=== PATIENT | male | born 1945 | race Caucasian/White ===

== ENCOUNTER 2020-11-01 11:04 | Inpatient (IN) | payer OTHER, SELFPAY ==
[~2020-11-01] VITALS: Ht 170.2 cm; Wt 83.5 kg
[2020-11-01 11:06] VITALS: BP 153/81
--- NOTE | 2020-11-01 11:08 | NUR ---
BIBA TAKEN TO BED 4
--- NOTE | 2020-11-01 11:17 | NUR ---
DAUGHTER INFORMATION- CRISTHIAN ROUSSEAU [phone]
[2020-11-01] MEDS ORDERED: DEXAMETHASONE 4 MG/ML VIAL IVP ONE (11:25)
--- NOTE | 2020-11-01 11:46 | NUR ---
X-Ray at bedside.
[2020-11-01 12:15] LABS: BASOPHILS % (AUTO) 0.4 % (0.0-2.0); EOSINOPHILS % (AUTO) 0.1 % (0.0-4.0); HEMATOCRIT 38.8 % (36-52); HEMOGLOBIN 12.4 g/dL (12.0-18.0); LYMPHOCYTES # (AUTO) 0.3 K/uL (2.0-11.5); LYMPHOCYTES % (AUTO) 5.4 % (20.5-51.1); MEAN CORPUSCULAR HEMOGLOBIN 29 pg (27-31); MEAN CORPUSCULAR HGB CONC 32 g/dL (33-37); MEAN CORPUSCULAR VOLUME 91.5 fL (80-94); MONOCYTES # (AUTO) 0.4 K/uL (0.8-1.0); MONOCYTES % (AUTO) 7.1 % (1.7-9.3); NEUTROPHILS # (AUTO) 4.9 K/uL (1.8-7.7); PLATELET COUNT (AUTO) 169 K/uL (140-450); RED BLOOD CELL COUNT(AUTO) 4.24 MIL/uL (4.20-6.10); RED CELL DISTRIBUTION WIDTH 16.1 % (11.6-13.7); WHITE BLOOD COUNT (AUTO) 5.6 K/uL (4.8-10.8)
[2020-11-01 12:26] LABS: C-REACTIVE PROTEIN QUANT 11.9 mg/dL (0.0-0.9)
[2020-11-01 12:30] LABS: ALBUMIN 3.4 g/dL (3.4-5.0); ANION GAP 20.7 (8-16); ASPARTATE AMINOTRANSFERASE 129 U/L (15-37); CHLORIDE 94 mmol/L (98-107); GLUCOSE 152 mg/dL (74-106); POTASSIUM 4.7 mmol/L (3.5-5.1); SODIUM SERUM 138 mmol/L (136-145); TOTAL BILIRUBIN 0.8 mg/dL (0.0-1.0); UREA NITROGEN, BLOOD 32 mg/dL (7-18)
[2020-11-01] MEDS ORDERED: FOLI1TAB89 PO (12:32)
[2020-11-01] MEDS ORDERED: ACET-8386 PO (12:32)
[2020-11-01] MEDS ORDERED: CARV6.25 PO (12:32)
[2020-11-01] MEDS ORDERED: ZAR2.5 PO (12:32)
[2020-11-01] MEDS ORDERED: INSU100S5 IM (12:32)
[2020-11-01] MEDS ORDERED: PATI8.4P PO (12:32)
[2020-11-01] MEDS ORDERED: GABA100C PO (12:32)
[2020-11-01] MEDS ORDERED: CALC667C12 PO (12:32)
[2020-11-01] MEDS ORDERED: ATOR40TA PO (12:32)
[2020-11-01] MEDS ORDERED: DOCU-299 PO (12:32)
[2020-11-01] MEDS ORDERED: ASPI-1822 PO (12:32)
[2020-11-01] MEDS ORDERED: VITA-16 PO (12:32)
[2020-11-01] MEDS ORDERED: CLOP75TA55 PO (12:32)
[2020-11-01] MEDS ORDERED: FERR325E14 PO (12:32)
[2020-11-01 12:34] LABS: PROTHROMBIN TIME 12.1 secs (10.8-13.4)
[2020-11-01 12:37] LABS: CREATININE 5.4 mg/dL (0.6-1.3)
--- NOTE | 2020-11-01 12:39 | NUR ---
Stable VSS Mild SOB Doing well on NR at 100%
--- NOTE | 2020-11-01 12:59 | NUR ---
Covid swab invalid-- critical value received from lab. Dr Amanda made aware
[2020-11-01] MEDS ORDERED: AZITHROMYCIN 500 MG in DEXTROSE 5% 250 ML IV ONE (13:30)
[2020-11-01] MEDS ORDERED: ASPIRIN 325 MG TAB PO ONE (13:30)
[2020-11-01] MEDS ORDERED: cefTRIAXone 1,000 MG VIAL ONE (13:56)
[2020-11-01] MEDS ORDERED: AZITHROMYCIN 500 MG INJ VIAL IV ONE (13:56)
[2020-11-01 16:02] LABS: APPEARANCE,URINE CLEAR (CLEAR); BILIRUBIN,URINE NEGATIVE (NEGATIVE); BLOOD, URINE NEGATIVE (NEGATIVE); COLOR,URINE YELLOW (YELLOW); LEUKOCYTE ESTERASE ,URINE NEGATIVE (NEGATIVE); NITRITE, URINE NEGATIVE (NEGATIVE); UGLUCOSE TRACE (NEGATIVE)
--- NOTE | 2020-11-01 16:09 | NUR ---
Stable. VSS. Afebrile. 02 Sat has improved on 100% NR. Now at 98%. Patient to be admitted.
--- NOTE | 2020-11-01 16:34 | NUR ---
Oksana an-- call for updates [phone]
[2020-11-01] MEDS: NACL 0.9% 1,000 ML IV SCH (23:10)
[2020-11-01] MEDS ORDERED: MAG SULF 2000 MG/WATER PREMIX 50 ML IV PRN (23:10)
[2020-11-01] MEDS ORDERED: ALBUTEROL HFA MDI 90 MCG/ACTUATION 8 GM INH PRN (23:10)
[2020-11-01] MEDS ORDERED: ONDANSETRON 4 MG/2 ML VIAL IM/IVP PRN (23:10)
[2020-11-01] MEDS ORDERED: ACETAMINOPHEN 325 MG TAB PO PRN (23:10)
[2020-11-01] MEDS ORDERED: HYDROcodone/APAP 5/325 MG 1 TAB TAB PO PRN (23:10)
[2020-11-01] MEDS ORDERED: MORPHINE SULFATE 2 MG/ML SYR IVP PRN (23:10)
[2020-11-01] MEDS ORDERED: ZOLPIDEM 5 MG TAB PO PRN (23:10)
[2020-11-01] MEDS ORDERED: DOCUSATE SODIUM 100 MG GELCAP PO PRN (23:10)
[2020-11-01] MEDS ORDERED: POTASSIUM CHLORIDE 10 MEQ TABER PO PRN (23:10)
[2020-11-01] MEDS ORDERED: LORazepam 2 MG/ML VIAL IM/IVP PRN (23:10)
[2020-11-01] MEDS ORDERED: hePARIN / DEXT 5% PREMIX 250 ML IV SCH (23:25)
[2020-11-02] MEDS ORDERED: DEXTROSE 50% 50 ML SYR IVP PRN (01:15)
--- NOTE | 2020-11-02 01:15 | NUR ---
LAB AT BEDSIDE
[2020-11-02 01:24] LABS: MAGNESIUM 2.4 mg/dL (1.8-2.4); PHOSPHORUS 3.8 mg/dL (2.5-4.9); THYROID STIMULATING HORMONE 1.29 uIU/mL (0.34-3.74)
--- NOTE | 2020-11-02 03:00 | NUR ---
AWAKE, DENIES PAIN OR DISCOMFORT. JUICE AND URINAL GIVEN
--- NOTE | 2020-11-02 06:00 | NUR ---
RESTING COMFORTABLY WITH EYES CLOSED. RESPIRATIONS REGULAR AND UNLABORED.
[2020-11-02] MEDS ORDERED: hePARIN / DEXT 5% PREMIX 250 ML IV SCH (07:10)
[2020-11-02] MEDS ORDERED: HEPARIN PER PHARMACY MC PRN (07:17)
[2020-11-02] MEDS: BLOOD GLUCOSE MONITORING 1 DEV DEV FS SCH ×4 (07:39→21:38)
[2020-11-02] MEDS: INSULIN LISPRO SLIDING SCALE 100 UNITS/ML VIAL SUBQ PRN ×3 (07:41→21:37)
[2020-11-02] MEDS ORDERED: metOLazone 2.5 MG TAB PO SCH (09:00)
[2020-11-02] MEDS ORDERED: FOLIC ACID 1 MG TAB PO SCH (09:00)
[2020-11-02] MEDS ORDERED: ASPIRIN 81 MG TAB.CHEW PO SCH (09:00)
[2020-11-02] MEDS ORDERED: LOVENOX 1MG/KG Q12H SUBQ SCH (09:00)
[2020-11-02] MEDS ORDERED: CLOPIDOGREL 75 MG TAB PO SCH (09:00)
[2020-11-02] MEDS ORDERED: NON-FORMULARY ITEM (Cholecalciferol (Vitamin D3) (Vitamin D3) 5,000 U) PO SCH (09:00)
[2020-11-02] MEDS ORDERED: PATIROMER CALCIUM SORBITEX 8.4 GM PO SCH (09:00)
[2020-11-02] MEDS ORDERED: VITAMIN D 400 IU TAB PO SCH (09:00)
[2020-11-02] MEDS ORDERED: ASCORBIC ACID 500 MG TAB PO SCH (09:00)
[2020-11-02] MEDS ORDERED: AZITHROMYCIN 250 MG TAB PO SCH (09:00)
[2020-11-02] MEDS ORDERED: ATORVASTATIN 20 MG TAB PO SCH (09:00)
[2020-11-02] MEDS: DOCUSATE SODIUM 100 MG GELCAP PO SCH ×3 (09:15→17:00)
[2020-11-02] MEDS: carvediloL 6.25 MG TAB PO SCH ×2 (09:15→21:00)
[2020-11-02] MEDS: FERROUS SULFATE 325 MG TABEC PO SCH ×2 (09:15→21:00)
[2020-11-02] MEDS: CALCIUM ACETATE 667 MG TAB PO SCH ×3 (09:15→17:00)
[2020-11-02] MEDS: GABAPENTIN 100 MG CAP PO SCH ×2 (09:15→21:00)
[2020-11-02 09:59] LABS: BASOPHILS % (AUTO) 0.2 % (0.0-2.0); LYMPHOCYTES # (AUTO) 0.9 K/uL (2.0-11.5); LYMPHOCYTES % (AUTO) 15.2 % (20.5-51.1); MEAN CORPUSCULAR HEMOGLOBIN 29 pg (27-31); MEAN CORPUSCULAR HGB CONC 33 g/dL (33-37); MEAN CORPUSCULAR VOLUME 90.1 fL (80-94); MONOCYTES # (AUTO) 0.4 K/uL (0.8-1.0); MONOCYTES % (AUTO) 7.2 % (1.7-9.3); NEUTROPHILS # (AUTO) 4.8 K/uL (1.8-7.7); NEUTROPHILS % (AUTO) 77.4 % (42.2-75.2); PLATELET COUNT (AUTO) 160 K/uL (140-450); RED BLOOD CELL COUNT(AUTO) 4.44 MIL/uL (4.20-6.10); RED CELL DISTRIBUTION WIDTH 16.3 % (11.6-13.7); WHITE BLOOD COUNT (AUTO) 6.2 K/uL (4.8-10.8)
--- NOTE | 2020-11-02 10:19 | NUR ---
PATIENT HAS BEEN SCREENED AND CATEGORIZED MODERATE NUTRITION RISK. PATIENT WILL BE SEEN WITHIN 3-5 DAYS OF ADMISSION. 11/04/20 11/06/[address]
[2020-11-02 10:40] LABS: ALBUMIN 3.2 g/dL (3.4-5.0); ANION GAP 20.1 (8-16); ASPARTATE AMINOTRANSFERASE 204 U/L (15-37); CARBON DIOXIDE 25.5 mmol/L (21-32); CHLORIDE 95 mmol/L (98-107); CHOL/HDL RATIO 2.8 (1-4.5); GLUCOSE 257 mg/dL (74-106); HDL CHOLESTEROL 36 mg/dL (40-60); LDL (CALC) 38 mg/dL (60-100); PHOSPHORUS 6.5 mg/dL (2.5-4.9); POTASSIUM 4.6 mmol/L (3.5-5.1); SODIUM SERUM 136 mmol/L (136-145); TOTAL BILIRUBIN 0.5 mg/dL (0.0-1.0); TRIGLYCERIDES 125 mg/dL (30-150); UREA NITROGEN, BLOOD 54 mg/dL (7-18)
[2020-11-02 10:43] LABS: CREATININE 7.1 mg/dL (0.6-1.3)
--- NOTE | 2020-11-02 10:47 | NUR ---
SOCIAL WORK NOTE: Patient's Orientation Unable To Assess Information Provided By CRISTHIAN ROUSSEAU - DAUGHTER Comments SW WAS UNABLE TO MEET PATIENT AT BEDSIDE TO COMPLETE ASSESSMENT. SW COMPLETED ASSESSMENT WITH PATIENT'S TRAVIS. [employer] Resource Teacher, Realtionship and Phone Number CRISTHIAN ROUSSEAU DAUGHTER [phone] Healthcare Power of Warehouse Representative No Does Patient Have a POLST No Identifying Problems No Social Work Triggers Is A Social Work Consult Needed No Mandate Report Filed No Explanation Of Identifying Problems PATIENT IS A 75-YEAR-OLD MALE ADMITTED FOR ACUTE HYPOXIA. PATIENT HAS PMHX OF HYPERTENSION, DIABETES, AND ESRD ON HD. Admitted From Home Pre-Admission Level Of Functioning Status Total Care Prior Resources/Services Used In Last 12 Months No Prior Resources Used Prior DME Home Oxygen Wheelchair Dialysis Hemodialysis Name And Phone Number of Dialysis Facility [facility] Outpatient Time [address] Lives With Family Patient Had Caregiver No Home Support CG/Fam Able To Meet Need Financial Issues No Known Financial Issue Referral To The Financial Counselor Needed No Factors/Needs No D/C Needs Identified Pt/Rep Participated In Discharge Plan Yes Patient/Family Agress With Discharge Plan Yes Discharge Plan Comments TENTATIVE DISCHARGE PLAN IS FOR PATIENT TO RETURN HOME. DC Plan Status Initiated
[2020-11-02 11:08] LABS: LACTATE DEHYDROGENASE 529 U/L (85-227)
--- NOTE | 2020-11-02 12:12 | NUR ---
Unable to get IV access in patient. States he does not want any more attempts at IV. Dr Lopez made aware
[2020-11-02] MEDS ORDERED: AZITHROMYCIN 250 MG in DEXTROSE 5% 250 ML IV SCH (13:00)
--- NOTE | 2020-11-02 13:19 | NUR ---
SPOKE WITH ELANA, UPDATED ON PLAN OF CARE. ALL QUESTIONS ANSWERED.
--- NOTE | 2020-11-02 16:00 | NUR ---
RECIVED REPORT FROM [facility], CONTINUATION OF CARE. PATION ON 15L NON-REBREATHER MASK 94%, PATIENT ON CARIDAC MONITOR. VSS. PATIENT GIVEN URINAL AT BEDSIDE, BEDSIDE COMODE AT BEDISDE. PATIENT ACCUCHECK 213. UNABLE TO GET IV ACCESS ON PATIENT, PATIENT REFUSING PICC OR CENTRAL LINE ACCESS. DIALYSIS SHUNT NOTED ON R FA AND THRILL FELT, BRUIT HEARD. NO BP PN R ARM. PATIENT BED LOCKED AND IN LOWEST POSITION CALL LIGHT IN PLACE. PATIENT STATES RECIVED DYALISIS YESTERDAY BUT USUALLY GETS IT T,TH,SAT. MEDHX: DM, ESRD. NKA
--- NOTE | 2020-11-02 16:30 | NUR ---
PATIENT REFUSED PICC LINE PLACEMENT. DR. HEIN MADE AWARE.
[2020-11-02] MEDS: NACL 0.9% 1,000 ML IV SCH (16:56)
[2020-11-02] MEDS ORDERED: INSULIN REGULAR, HUMAN 100 UNIT/ML VIAL IM SCH (17:00)
--- NOTE | 2020-11-02 18:22 | NUR ---
Patient appears to be resting comfortably in bed. Vital Signs within normal limits. Respirations even and unlabored.
--- NOTE | 2020-11-02 20:19 | NUR ---
PATIENT FOOD TRAY GIVEN AT BEDSIDE.
--- NOTE | 2020-11-02 20:30 | NUR ---
Patient will be admitted to care of . Admited to TELE. Will go to room 102B. Belongings list completed. Report to [facility].
--- NOTE | 2020-11-02 21:30 | NUR ---
Admitted from ER. Patient alert and oriented x4. Received patient on 15L NRB. O2 sat 86%. Patient refused IV access, MRSA swab and all medications except insulin. Explained risks and benefits, patient still refused. Patient also refused body assessment.
[2020-11-02 22:26] VITALS: BP 174/93
--- NOTE | 2020-11-02 22:30 | NUR ---
Patient refusing care. Spoke with daughter Oksana, made aware. Daughter also spoke with patient, but patient still refusing care.
--- NOTE | 2020-11-03 00:41 | NUR ---
PER LACE ROLLER OPERATOR PATIENT WENT TO SINUS KEVIN HIGH 30'S, WENT TO CHECK PATIENT. PATIENT IS UNRESPONSIVE. MASK IS OFF. CHECKED PULSE. NO PULSE NOTED. ACTIVATED CODE BLUE. START CHEST COMPRESSION.
--- NOTE | 2020-11-03 00:57 | NUR ---
PATIENT SURVIVED AND INTUBATED, IO WAS PUT IN FOR IV ACCESS.
[2020-11-03] MEDS ORDERED: PROPOFOL 1000 MG/100 ML PREMIX 100 ML IV ONE (01:05)
--- NOTE | 2020-11-03 01:10 | NUR ---
PATIENT BECOME ASYSTOLE. CHECK FOR PULSE NO PULSE NOTED. ACTIVATED CODE BLUE. START CHEST COMPRESSION.
--- NOTE | 2020-11-03 01:12 | NUR ---
GOT PULSE. PATIENT IS TACHY
--- NOTE | 2020-11-03 01:15 | NUR ---
ENDORSED PATIENT TO NOLVIA FOR CONTINUITY OF CARE
--- NOTE | 2020-11-03 01:20 | NUR ---
NOTIFY PATIENT DAUGHTER REGARDING PATIENT SITUATION.
--- NOTE | 2020-11-03 01:25 | NUR ---
NOTIFIED MD REGARDING PATIENT SITUATION
--- NOTE | 2020-11-03 01:26 | NUR ---
PATIENT BECOME ASYSTOLE AGAIN. CHECKED PULSE, NO PULSE NOTED. START CHEST COMPRESSION. ACTIVATED CODE BLUE.
--- NOTE | 2020-11-03 01:33 | NUR ---
GOT PULSE. PATIENT RHYTHM IS SINUS TACHY. PATIENT SURVIVED FROM RESUSCITATION
--- NOTE | 2020-11-03 01:46 | NUR ---
FOR THE 4TH TIME PATIENT BECOME CARDIAC RHYTHM ASYSTOLE. CHECK PATIENT PULSE, NO PULSE NOTED. START CHEST COMPRESSION. ACTIVATED SPEEDY CASTELLANO.
--- NOTE | 2020-11-03 01:54 | NUR ---
DOCTOR WILCOX SPOKE WITH THE PATIENTS DAUGHTER TO GIVE MORE INFORMATION REGARDING PATIENT STATUS.
--- NOTE | 2020-11-03 01:55 | NUR ---
PATIENT BP 82/54, 77HR, 82% SPO2 ETT TO VENT. LEVOPHED STARTED.
--- NOTE | 2020-11-03 02:02 | NUR ---
PT PLACED ON PC +8, f 20 100% PT RECEIVING ADEQUATE VOLUMES. SIZE 8.0 ETT SECURED 24CM. LAST SPO2 OBTAINABLE WAS 84%. POST ABG IS UN-OBTAINABLE AT THIS TIME DUE TO LOW BP. ABG UN-SUCESSFUL X2 WILL ATTEMPT AGAIN AT A LATER TIME WHEN BP INCREASES
--- NOTE | 2020-11-03 02:06 | NUR ---
PATIENT BECAME SUPER KEVIN BELOW 30'S, CHECK FOR PULSE. NO PULSE NOTED. START CHEST COMPRESSION. ACTIVATED CODE BLUE
--- NOTE | 2020-11-03 02:15 | NUR ---
PER DOCTOR JERI PATIENT IS NOW DNR PER DAUGHTER CRISTHIAN KNIGHT
--- NOTE | 2020-11-03 02:24 | NUR ---
PATIENT WAS PRONOUNCED AT 223 BY DOCTOR WILCOX
--- NOTE | 2020-11-03 02:45 | NUR ---
RELEASED PATIENTS BELONGINGS TO CRISTHIAN PATIENTS DAUGHTER.
--- NOTE | 2020-11-03 02:49 | NUR ---
CALLED [facility]. RELEASE NUMBER [phone]
--- NOTE | 2020-11-03 03:00 | NUR ---
FAMILY DOESN'T HAVE A PLACE FOR THE PATIENT YET. WILL CALL AGAIN LATER
--- NOTE | 2020-11-03 04:10 | NUR ---
SPOKE WITH TAYO JORDAN CORONERS PERSONNEL. PER TAYO PATIENT BODY CAN BE RELEASE.
--- NOTE | 2020-11-03 04:30 | NUR ---
REMOVED ALL IV AND TUBING LINES.
--- NOTE | 2020-11-03 05:00 | NUR ---
PATIENTS DAUGHTER CRISTHIAN CONTACT INFORMATION [phone]
[2020-11-03 08:07] LABS: T4 (THYROXINE) 7.4 ug/dL (4.5-12.0)
[2020-11-03 19:41] LABS: LACTATE DEHYDROGENASE 548 IU/L (0-214)
--- NOTE | 2020-11-05 12:45 | NUR ---
LATE ENTRY -- AZITHROMYCIN INFUSION COMPLETED AT 1514 11/01/20 AND ROCEPHIN INFUSION 1434 11/01/20
[2020-11-06 06:07] LABS: LD1 FRACTION 13 % (17-32); LD2 FRACTION 25 % (25-40); LD3 FRACTION 19 % (17-27); LD4 FRACTION 11 % (5-13)
[2020-11-06 23:26] LABS: LD5 FRACTION 32 % (4-20)
== END 2020-11-03 02:24 | DRG 177 ==
LOC: MED 11:04 → MTU 23:18 → MMU 11-02 12:39
PROC: 5A12012 Performance of Cardiac Output, Single, Manual (ICD-10-PCS; principal; 2020-11-03)
PROC: 5A1D70Z Performance of Urinary Filtration, Intermittent, Less than 6 Hours Per Day (ICD-10-PCS; 2020-11-03)
DX: U07.1 COVID-19 (principal); G93.41 Metabolic encephalopathy; N18.6 End stage renal disease; N17.0 Acute kidney failure with tubular necrosis; J12.82 Pneumonia due to coronavirus disease 2019; J96.01 Acute respiratory failure with hypoxia; I21.4 Non-ST elevation (NSTEMI) myocardial infarction; I13.2 Hypertensive heart and chronic kidney disease with heart failure and with stage 5 chronic kidney disease, or end stage renal disease; E78.5 Hyperlipidemia, unspecified; E11.22 Type 2 diabetes mellitus with diabetic chronic kidney disease; E86.0 Dehydration; I46.9 Cardiac arrest, cause unspecified; K59.00 Constipation, unspecified; D63.8 Anemia in other chronic diseases classified elsewhere; E11.40 Type 2 diabetes mellitus with diabetic neuropathy, unspecified; I50.9 Heart failure, unspecified; Z99.2 Dependence on renal dialysis; Z91.15 Patient's noncompliance with renal dialysis; Z79.899 Other long term (current) drug therapy; Z79.82 Long term (current) use of aspirin; Z79.4 Long term (current) use of insulin
CPT/HCPCS: 36415; 71045; 80053; 81003; 82150; 82948; 83036; 83605; 83615; 83625; 83690; 83735; 83880; 84100; 84134; 84436; 84443; 84484; 85025; 85379; 85610; 85651; 85730; 86140; 87040; 93005; 96365; 96375; 99285; J0456; J0696; J1100; J1815; J2704; J7060; U0003